=== PATIENT | female | born 1960 | race Asian ===

== ENCOUNTER 2017-02-01 08:11 | Emergency (ER) | payer OTHER, MEDICAID ==
[~2017-02-01] VITALS: Ht 160 cm; Wt 83.9 kg
[2017-02-01 09:05] VITALS: BP_SYST 107
--- NOTE | 2017-02-01 09:10 | NUR ---
Patient to ER bed 7 to gown for evaluation. Side rails up. Report given to Jesus YEE.
--- NOTE | 2017-02-01 09:12 | NUR ---
PT PRESENTS TO ED C/O L KNEE PAIN S/P [facility] IN STORE YESTERDAY PER REPORT. PT DENIES HEAD INJURY OR SYNCOPE. PT H/O DM,HTN,NEUROPATHY AND CHRONIC PAIN.
--- NOTE | 2017-02-01 09:30 | NUR ---
RAD EVALUATION COMPLETED
--- NOTE | 2017-02-01 10:00 | NUR ---
PT REQUESTING PAIN MEDICATION.DR. SWAIN AWARE.NO ORDERS RECEIVED.
--- NOTE | 2017-02-01 11:20 | NUR ---
KNEE IMMOBILIZER APPLIED.PT REFUSED CRUTCHES.
[2017-02-01] MEDS ORDERED: ONDANSETRON 4 MG ODT TAB PO ONE (11:45)
[2017-02-01] MEDS ORDERED: MORPHINE 4 MG/ML INJ. SYRINGE IVP ONE (11:45)
--- NOTE | 2017-02-01 12:00 | NUR ---
PT MEDICATED TOLERATED. PT TO BE MINITORED PRIOR TO D/C
[2017-02-01 12:20] VITALS: BP_SYST 124
--- NOTE | 2017-02-01 12:20 | NUR ---
Patient given written and verbal discharge instructions and verbalizes understanding. ER MD discussed with patient the results and treatment provided. Patient in stable condition. ID arm band removed. Rx of TRAMADOL given. Patient educated on pain management and to follow up with PMD. Pain Scale 2. Opportunity for questions provided and answered.
== END 2017-02-01 12:20 | disposition home or self-care (01) ==
LOC: SED 08:11
DX: S83.92XA Sprain of unspecified site of left knee, initial encounter (principal); Z88.5 Allergy status to narcotic agent; W01.0XXA Fall on same level from slipping, tripping and stumbling without subsequent striking against object, initial encounter; Y93.89 Activity, other specified; Y92.512 Supermarket, store or market as the place of occurrence of the external cause; Y99.8 Other external cause status
CPT/HCPCS: 29505; 73564; 96372; 99284; J2270; Q0162